=== PATIENT | male | born 1995 | race Caucasian/White ===

== ENCOUNTER 2019-07-01 19:54 | Emergency (ER) | payer BC ==
[~2019-07-01] VITALS: Ht 177.8 cm; Wt 77.3 kg
[2019-07-01 20:11] VITALS: BP 110/61
[2019-07-01] MEDS ORDERED: ZOLOFT 50MG50 MG PO (20:29)
[2019-07-01] MEDS ORDERED: ZOFRAN ODT4 MG PO (21:02)
[2019-07-01 22:00] VITALS: PULSE 76; TEMP 98.6
== END 2019-07-01 22:00 | disposition home or self-care (01) ==
LOC: COL.ER 19:54
DX: R19.7 Diarrhea, unspecified (principal); R11.2 Nausea with vomiting, unspecified; F41.9 Anxiety disorder, unspecified; F17.210 Nicotine dependence, cigarettes, uncomplicated